=== PATIENT | male | born 1990 | race African-American/Black ===

== ENCOUNTER 2016-07-21 19:52 | Emergency (ER) | payer MEDICAID, OTHER ==
[~2016-07-21] VITALS: Ht 182.9 cm; Wt 81.6 kg
[2016-07-21] MEDS: HYDROcodone-ACET 10/325MG TAB PO ONE (23:19)
[2016-07-21 23:53] VITALS: BP 129/78
== END 2016-07-22 00:49 | disposition home or self-care (01) ==
LOC: ER 19:52
DX: S93.402A Sprain of unspecified ligament of left ankle, initial encounter (principal); W22.8XXA Striking against or struck by other objects, initial encounter; Y93.67 Activity, basketball; Y99.8 Other external cause status; Y92.89 Other specified places as the place of occurrence of the external cause
CPT/HCPCS: 29515; 73610